=== PATIENT | female | born 1960 | race Hispanic/Latino ===

== ENCOUNTER 2025-01-06 15:02 | Inpatient (IN) | payer OTHER, MEDICAID ==
[~2025-01-06] VITALS: Ht 154.9 cm; Wt 67.4 kg
[2025-01-06 16:05] LABS: IMMATURE GRANULOCYTE ABSOLUTE 0.02 K/uL (0-1); NUCLEATED RED BLOOD CELLS 0.0 % (0.0-0.19); PLATELET COUNT (AUTO) 330 K/uL (130-400); RED BLOOD CELL COUNT(AUTO) 3.81 MIL/uL (4.00-5.50); RED CELL DISTRIBUTION WIDTH 13.5 % (11.0-15.5); WHITE BLOOD COUNT (AUTO) 8.5 K/uL (4.8-10.8)
[2025-01-06 16:20] LABS: ASPARTATE AMINOTRANSFERASE 20.0 U/L (10-37); CREATININE 1.0 mg/dL (0.5-1.0); GLOMERULAR FILTR. RATE CALC 63.0 mL/min (>90); SODIUM SERUM 139.0 mmol/L (136-145); TOTAL PROTEIN, SERUM 7.8 g/dL (6.0-8.3); UREA NITROGEN, BLOOD 22.0 mg/dL (7-18)
[2025-01-06 16:22] LABS: GLUCOSE,RANDOM 48.0 mg/dL (70-105)
[2025-01-06] MEDS: DEXTROSE 50%-WATER 50 ML DISP.SYRIN IV ONE ×2 (16:37→16:53)
[2025-01-06 16:43] LABS: ADD UA MICROSCOPIC YES; APPEARANCE,URINE TURBID (CLEAR); GLUCOSE, URINE (UA) NEGATIVE (NEGATIVE); LEUKOCYTE ESTERASE ,URINE 500 Leu/uL (NEGATIVE); NITRATE,URINE NEGATIVE (NEGATIVE); OCCULT BLOOD,URINE LARGE (NEGATIVE)
[2025-01-06 16:51] LABS: NON-SQUAMOUS EPITHELIAL CELL 8 /HPF (0-2); SQUAMOUS EPITHELIAL CELL,UR RARE /HPF (0-2)
[2025-01-06] MEDS ORDERED: ZOSYN 3.375GM +NS 50ML IV STA (17:25)
[2025-01-06] MEDS: 0.9%NACL 1000ML 1,000 ML IV ONE (17:51)
--- NOTE | 2025-01-06 18:10 | HMCIMG ---
EXAM: CT Abdomen and Pelvis Without IV Contrast. CLINICAL HISTORY: Lower abdominal pain. TECHNIQUE: Axial computed tomography images of the abdomen and pelvis without intravenous contrast. CONTRAST: No IV contrast. COMPARISON: None provided. FINDINGS: LUNG BASES: The lung bases appear clear. No pleural effusions are seen. LIVER: Unremarkable. GALLBLADDER AND BILE DUCTS: The gallbladder appears within normal limits. No radiopaque gallstones are seen. No biliary ductal dilatation is evident. PANCREAS: Unremarkable. SPLEEN: Unremarkable. ADRENAL GLANDS: Unremarkable. KIDNEYS, URETERS, AND BLADDER: Left-sided ureteral stent is seen with the proximal tip in the left renal pelvis and the distal tip in the urinary bladder. Large calculi are seen in the left renal pelvis along the ureteral stent, the largest measuring up to 3.7 cm. Severe left hydronephrosis is present with renal parenchymal thinning and multiple areas of cortical scarring. Left perinephric fat stranding is noted. A large calculus is seen within the urinary bladder along the distal end of the ureteral stent, measuring approximately 1.8 ??? 3.7 cm. Few renal cortical cysts are present, the largest measuring 2.3 ??? 2.2 cm in the mid-pole of the left kidney. STOMACH AND BOWEL: Unremarkable appearance of the stomach and bowel. No evidence of bowel obstruction. No findings suggesting enteritis or colitis. APPENDIX: No evidence of acute appendicitis on CT examination. PERITONEUM: No free fluid. No free air. LYMPH NODES: Multiple enlarged retroperitoneal lymph nodes, predominantly in the para-aortic region, the largest measuring up to 1.2 cm. REPRODUCTIVE: Post-hysterectomy status. No obvious adnexal mass. VASCULATURE: No evidence of abdominal aortic aneurysm. BONES: No aggressive-appearing osseous lesion. No acute osseous pathology. Degenerative changes in the visualized spine. MISCELLANEOUS: Hyperdense subcutaneous soft tissue lesion measuring 1.6 ??? 1.7 cm is seen in the left infraumbilical abdominal wall with few internal air foci. Associated focal overlying skin thickening is noted. IMPRESSION: 1. Large left renal pelvis calculi, up to 3.7 cm, with severe left hydronephrosis, renal parenchymal thinning, and perinephric fat stranding. Left-sided ureteral stent in place. 2. Large bladder calculus, measuring 1.8 ??? 3.7 cm. 3. Multiple enlarged retroperitoneal lymph nodes, up to 1.2 cm. 4. Hyperdense subcutaneous soft tissue lesion in left infraumbilical abdominal wall, measuring 1.6 ??? 1.7 cm, with internal air foci and focal overlying skin thickening. This may relate to recent injection, clinical correlation is advised. /[place]
--- NOTE | 2025-01-06 18:36 | ERN ---
ED Note History of Present Illness Stated Complaint: ABDOMINAL DO N Chief Complaint: Abdominal Pain Time Seen by MD: 15:30 Dictation: 64-year-old female presenting to the emergency department with diffuse abdominal pain and weakness over the past few days patient reports 10 pain. Allergies: Coded Allergies: ceftriaxone (Unverified Allergy, Unknown, 01/06/25) Past Medical History Past Medical History: Diabetes-Type II, Hypertension Surgical History: None Review of System Dictation Constitutional: Negative for fever,chills, and weight loss Eyes: Negative for injury, pain,redness, and discharge ENT: Negative for injury,pain or swelling Cardiovascular: Negative for chest pain, palpitations, and edema Respiratory: Negative for shortness of breath, cough, and wheezing, Abdomen/GI: Per HPI : Per HPI MS/Extremity: Negative for injury and deformity Skin: Negative for rash, and discoloration Neuro: Per HPI Initial Vital Sign VS Vital Signs Date Time Temp Pulse Resp B/P (MAP) Pulse Ox O2 Delivery O2 Flow Rate FiO2 01/06/25 15:05 98.8 85 16 135/66 99 Room Air 01/06/25 16:30 0 21 Physical Exam Dictation General: awake, alert, uncomfortable Head/Face: Normocephalic, atraumatic Eyes: PERRL, EOMI, vision at baseline ENT: oral cavity clear, TMs clear, no signs of infection Neck: Trachea midline, supple, no nuchal rigidity Cardiovascular: RRR, normal S1/S2, No MRGs, no JVD Respiratory: CTAB, no respiratory distress, No rales or wheezes Abdomen: Soft, diffuse tenderness non-distended, normal bowel sounds, no guarding or rebound. Skin: Warm, dry, normal turgor, no rash MS/Extremity: Pulses equal, no cyanosis, neurovascular intact, FROM Neuro: COAx4, GCS 15, strength 5/5, CN 2-12 intact, normal cerebellar exam, nor mal gait, Psych: Normal behavior, mood, and affect normal Results (Laboratory/Radiology) Laboratory/Radiology Laboratory Tests Test 01/06/25 15:52 01/06/25 16:32 01/06/25 16:35 01/06/25 17:24 White Blood Count 8.5 K/uL (4.8-10.8) Red Blood Count 3.81 MIL/uL (4.00-5.50) L Hemoglobin 10.7 g/dL (12.0-16.0) L Hematocrit 33.6 % (36-48) L Mean Corpuscular Volume 88.2 fL (79-99) Mean Corpuscular Hemoglobin 28.1 pg (27.0-33.0) Mean Corpuscular Hemoglobin Concent 31.8 g/dL (32.0-36.0) L Red Cell Distribution Width 13.5 % (11.0-15.5) Platelet Count 330 K/uL (130-400) Mean Platelet Volume 9.5 fL (7.5-10.5) Immature Granulocyte % (Auto) 0.2 % (0-1) Neutrophils (%) (Auto) 44.8 % (40.0-77.0) Lymphocytes (%) (Auto) 36.8 % (21.0-51.0) Monocytes (%) (Auto) 13.0 % (3.0-13.0) Eosinophils (%) (Auto) 4.7 % (0.0-8.0) Basophils (%) (Auto) 0.5 % (0.0-5.0) Neutrophils # (Auto) 3.8 K/uL (1.8-7.7) Lymphocytes # (Auto) 3.1 K/uL (1.0-4.8) Monocytes # (Auto) 1.1 K/uL (0.1-1.0) H Eosinophils # (Auto) 0.40 K/uL (0.00-0.70) Basophils # (Auto) 0.04 K/uL (0.00-0.20) Absolute Immature Granulocyte (auto 0.02 K/uL (0-1) Nucleated Red Blood Cells 0.0 % (0.0-0.19) Sodium Level 139 mmol/L (136-145) Potassium Level 3.7 mmol/L (3.5-5.1) Chloride Level 104 mmol/L (101-111) Carbon Dioxide Level 31 mmol/L (21-32) Blood Urea Nitrogen 22 mg/dL (7-18) H Creatinine 1.0 mg/dL (0.5-1.0) Glomerular Filtration Rate Calc 63 mL/min (>90) Random Glucose 48 mg/dL (70-105) *L Total Calcium 9.3 mg/dL (8.5-10.1) Total Bilirubin 0.4 mg/dL (0.2-1.0) Direct Bilirubin 0.1 mg/dL (0.0-0.3) Aspartate Amino Transf (AST/SGOT) 20 U/L (10-37) Alanine Aminotransferase (ALT/SGPT) 23 U/L (12-78) Alkaline Phosphatase 106 U/L (50-136) Troponin I High Sensitivity 5 ng/L (4-50) Total Protein 7.8 g/dL (6.0-8.3) Albumin 3.4 g/dL (3.5-5.0) L Lipase 36 U/L (16-77) Urine Color ORANGE (YELLOW) Urine Appearance TURBID (CLEAR) Urine pH 8.0 (5.0-8.0) Urine Specific [place] 1.016 (1.001-1.031) Urine Protein 300 mg/dL (NEGATIVE) H Urine Glucose (UA) NEGATIVE mg/dL (NEGATIVE) Urine Ketones NEGATIVE mg/dL (NEGATIVE) Urine Occult Blood LARGE (NEGATIVE) H Urine Nitrate NEGATIVE (NEGATIVE) Urine Bilirubin NEGATIVE mg/dL (NEGATIVE) Urine Urobilinogen 0.2 mg/dL (0.2-1.0) Urine Leukocyte Esterase 500 Reinier/uL (NEGATIVE) H Urine RBC 26-50 /HPF (0-1) H Urine WBC 51-100 /HPF (0-1) H Urine Squamous Epithelial Cells RARE /HPF (0-2) Urine Non-Squamous Epithelial Cells 8 /HPF (0-2) Urine Bacteria MANY /HPF (None Seen) Whole Blood Glucose 245 MG/DL (70-110) H 149 MG/DL (70-110) H Test 01/06/25 17:47 Lactic Acid Level 1.2 mmol/L (0.8-2.5) Labs Reviewed?: Yes ED Course ED Course Orders Procedure Category Date Status Time 12 Lead Ekg Tracing- EKG 01/06/25 Logged Technical 15:36 Basic Metabolic Panel LAB 01/06/25 Complete 15:36 Cbc With Differential LAB 01/06/25 Complete 15:36 Hepatic Function Panel LAB 01/06/25 Complete 15:36 Lipase LAB 01/06/25 Complete 15:36 Troponin I High LAB 01/06/25 Complete Sensitivity 15:36 Urinalysis Profile LAB 01/06/25 Complete 15:36 Morphine 4mg Syg PHA 01/06/25 Complete (Morphine 4mg Syg) 16:30 Ondansetron 4mg Inj PHA 01/06/25 Complete (Zofran 4mg Inj) 16:30 Ct Abd/Pel Wo Con CT 01/06/25 Resulted Renal/Appy 16:22 Dextrose 50%-Water PHA 01/06/25 Complete (D50w) 16:24 Ondansetron 4mg Inj PHA 01/06/25 Complete (Zofran 4mg Inj) 16:25 Morphine 4mg Syg PHA 01/06/25 Complete (Morphine 4mg Syg) 16:25 Dextrose 50%-Water PHA 01/06/25 Complete (D50w) 17:00 Culture Urine NOA 01/06/25 In Process 16:45 Blood Cult NOA 01/06/25 Logged 17:25 Lactic Acid LAB 01/06/25 Complete 17:25 Zosyn 3.375gm+Ns 50ml PHA 01/06/25 Complete (Zosyn 3.375gm+Ns 17:25 0.9%Nacl 1000ml (Ns PHA 01/06/25 Complete 1000ml) 17:30 Levofloxacin 500 PHA 01/06/25 In Process Mg/D5w 100 Ml 17:38 Current Medications Medications (Trade) Dose Ordered Sig/Rocío Route PRN Reason Start Time Stop Time Status Last Admin Dose Admin Dextrose (D50w) 50 ml ONCE ONCE IV 01/06/25 17:00 01/06/25 17:01 DC 01/06/25 17:16 Dextrose (D50w) 50 ml STK-MED ONCE IV 01/06/25 16:24 01/06/25 16:25 DC Levofloxacin/ Dextrose 100 ml @ 100 mls/hr Q24H STAT IV 01/06/25 17:38 01/06/25 18:37 01/06/25 17:51 Morphine Sulfate (morPHINE 4MG SYG) 4 mg ONCE ONCE IVP 01/06/25 16:30 01/06/25 16:31 DC 01/06/25 16:42 Morphine Sulfate (morPHINE 4MG SYG) 4 mg STK-MED ONCE .ROUTE 01/06/25 16:25 01/06/25 16:25 DC Ondansetron HCl (zoFRAN 4MG INJ) 4 mg ONCE ONCE IVP 01/06/25 16:30 01/06/25 16:31 DC 01/06/25 16:42 Ondansetron HCl (zoFRAN 4MG INJ) 4 mg STK-MED ONCE .ROUTE 01/06/25 16:25 01/06/25 16:25 DC Piperacillin Sod/ Tazobactam Sod (Zosyn 3.375gm+NS 50ml) 3.375 gm ONCE STAT IV 01/06/25 17:25 01/06/25 17:40 DC Sodium Chloride 1,000 ml @ 0 mls/hr ONCE ONCE IV 01/06/25 17:30 01/06/25 17:31 DC 01/06/25 17:51 Vital Signs Date Time Temp Pulse Resp B/P (MAP) Pulse Ox O2 Delivery O2 Flow Rate FiO2 01/06/25 17:25 99.3 89 25 105/47 99 Room Air* 0 21 01/06/25 16:30 68 18 144/68 98 Room Air* 0 21 01/06/25 15:05 98.8 85 16 135/66 99 Room Air Medical Decision Making MDM MDM: Differential diagnosis: Rationale: Tests considered and ordered secondary to shared decision making include: labs, ECG and radiology Previous outside records reviewed: Old ER visits. Risk of complication and/or morbidity or mortality of patient management: None Medications-Per medication reconciliation Need for hospitalization: Patient does meet criteria for hospitalization. Need for emergency major/minor surgery: No There are no social concerns with this patient. Prescription drug management Prescriptions will include symptomatic care Patient's prior external medical records from other ER visits were reviewed by me as indicated. Prior testing and results from previous visits were reviewed. Prior tests were taken into account with medical decision making and resource utilization, independent historian/historians were used to obtain complete medical history. I independently interpreted the test that were performed, results were reviewed by me and considered findings on radiology if ordered. Medical management and examination interpretation discussions were had by me with other qualified healthcare professionals as indicated for the patient's care. 64-year-old female presenting to the emergency department with generalized weakness left-sided hydro with UTI, pyelo, also had hypoglycemia corrected IV fluids antibiotics and dextrose given admitting for further care and evaluation Critical Care Note Comment(s) Total critical care time was 33 minutes. Excluding time for procedures. Management of critically ill patient with concern for acute decompensation. Management included interpretation of laboratory values and imaging, hemodynamics, time for consultation with consultants and admitting physician. DX & DISP Disposition: Inpatient Departure Impression: Primary Impression: Pyelonephritis of left kidney Additional Impressions: Hypoglycemia, Weakness Condition: Stable Referrals: YAAKOV ZENG MD (PCP) DAGMAR GEIGER MD Jan 06, 2025 18:36
--- NOTE | 2025-01-06 19:33 | HP ---
[facility] PHYS[facility] Date of Service: Jan 06, 2025 Time of Service: 19:32 PCP:Marimar Niño HISTORY OF PRESENT ILLNESS: This is a 64 year old female with past medical history of diabetes,hypertension ,GERD and hyperlipidemia who presents to the ED for complaints of severe abdominal pain and weakness .Patient reports pain is located to all quadrants and most especially at mid abdomen started for the past 4 weeks and pain intensity has been increasing,today pain is really intolerable associated with nausea and dizziness so she decided to come to the ED for evaluation.Patient states she was recently seen by her PCP and was found to have a UTI and was started on Macrobid antibiotic.Patient also states her last bowel movement was today and it was formed and normal in color. Seen and examined patient in the ER awake,alert and coherent,patient is crying complained of 8/10 abdominal pain level .Patient denies fever,vomiting,vomiting blood ,bloody stool,chest pain,palpitation and shortness of breat h.T99.3,HR89,RR25,BP 105/47 Sat99% RA.Labs: Hgb 10 Hct 33 Platelet 330. BUN 22 glucose 48 to 245,Trop 5,Albumin 3.4.Lactic acid 1.2.Urinalysis significant for protein 300,Occult blood large,Esterase 500 [id number] WBC 51-[address]d and pelvis without contrast result revealed . Large left renal pelvis calculi, up to 3.7 cm, with severe left hydronephrosis, renal parenchymal thinning, and perinephric fat stranding. Left-sided ureteral stent in place. Large bladder calculus, measuring 1.8 - 3.7 cm. Multiple enlarged retroperitoneal lymph nodes, up to 1.2 cm. Hyperdense subcutaneous soft tissue lesion in left infraumbilical abdominal wall, measuring 1.6- 1.7 cm, with internal air foci and focal overlying skin thickening. This may relate to recent injection . REVIEW OF SYSTEMS CONSTITUTIONAL: Denies fevers, chills, or night sweats. No unintentional weight loss reported. NEUROLOGICAL: Denies headache, amaurosis fugax, motor weakness, sensory deficit, vertigo/spinning sensation, gait abnormalities, or tremors. ENT: No hearing loss, otalgia, otorrhea, rhinitis, rhinorrhea, hoarseness, or sore throat. CARDIOVASCULAR: Denies any exertional angina, dyspnea on exertion, orthopnea, paroxysmal nocturnal dyspnea, palpitations, life-threatening arrhythmias, claudication. PULMONARY: Denies any shortness of breath, cough, phlegm/sputum, hemoptysis, pl euritic chest pain. SLEEP: Denies morning headaches, daytime somnolence or napping. Denies difficulty falling asleep, staying asleep, waking from sleep. Denies knowledge of snoring. GASTROINTESTINAL: complained of abdominal pain and constipation and nausea Denies any type of dysphagia to either liquids or solids. Denies vomiting, pyrosis, early satiety, diarrhea,changes in stool consistency or caliber. Denies coffee-ground emesis, hematemesis, hematochezia, or melanotic stools. GENITOURINARY: Denies frequency, urgency, nocturia, hematuria or incontinence (Storage/Irritative symptoms.) Low urinary stream, straining to void, urinary intermittency or hesitancy, splitting of the voiding stream, terminal dribbling. ENDOCRINOLOGIC: Denies polyuria, polydipsia, polyphagia or heat/cold intolerances. HEMATOLOGIC: Denies thrombophilia/previous clots, or coagulopathy/bleeding dis orders. ONCOLOGIC: Denies personal history of malignancy. DERMATOLOGIC: Denies rashes or pruritus. PSYCHIATRIC: Denies any suicidal or homicidal ideation. Denies hallucinations. PAST MEDICAL HISTORY: [ diabetes,hypertension ,GERD and hyperlipidemia ] PAST SURGICAL HISTORY: [ x2 ] PAST SOCIAL HISTORY: [ Patient lives alone .Patient states she does not drink alcohol,use recreational drug admits to smoking 3 cigarettes/day.] FAMILY HISTORY: [ noncontributory ] Coded Allergies: ceftriaxone (Unverified Allergy, Unknown, 01/06/25) PHYSICAL EXAM GENERAL APPEARANCE: The patient is awake, alert, and oriented, in no acute cardiopulmonary distress. NEUROLOGICAL: Cranial nerves II-XII grossly intact. Motor is 5/5 in bilateral upper and lower extremities proximal to distal. No sensory deficits. HEENT: Face is symmetric. Pupils are equal and reactive. Extraocular movements are intact. NECK: Supple. No JVD. No thyromegaly. No submental, submandibular, pre- /postauricular, occipital or supraclavicular lymphadenopathy. CHEST: Normal chest expansion. No Telemetry. LUNGS: Absence of any rales, rhonchi or any wheezing. CARDIOVASCULAR: Regular. S1 and S2 normal. No appreciable rubs, murmurs or gallops. ABDOMEN:Abdomen is round with diffuse abdominal tenderness on palpation Soft and nondistended. There is no rebound, voluntary guarding, or rigidity. : Deferred. No Navarro. EXTREMITIES: Non-edematous and not cyanotic. No clubbing. Good capillary refill. SKIN: No skin breakdown. Vital Sign (Last 24 Hours) 01/06/25 17:25 Temp 99.3 Pulse 89 Resp 25 B/P (MAP) 105/47 Pulse Ox 99 O2 Delivery Room Air* O2 Flow Rate 0 FiO2 21 LABS: Laboratory: Test 01/06/25 17:47 01/06/25 17:24 01/06/25 16:32 01/06/25 15:52 Range/Units Lactic Acid Level 1.2 0.8-2.5 mmol/L Whole Blood Glucose 149 H 70-110 MG/DL Urine Color ORANGE YELLOW Urine Appearance TURBID CLEAR Urine pH 8.0 5.0-8.0 Urine Specific [place] 1.016 1.001-1.031 Urine Protein 300 H NEGATIVE mg/dL Urine Glucose (UA) NEGATIVE NEGATIVE mg/dL Urine Ketones NEGATIVE NEGATIVE mg/dL Urine Occult Blood LARGE H NEGATIVE Urine Nitrate NEGATIVE NEGATIVE Urine Bilirubin NEGATIVE NEGATIVE mg/dL Urine Urobilinogen 0.2 0.2-1.0 mg/dL Urine Leukocyte Esterase 500 H NEGATIVE Reinier/uL Urine RBC 26-50 H 0-1 /HPF Urine WBC 51-100 H 0-1 /HPF Urine Squamous Epithelial Cells RARE 0-2 /HPF Urine Non-Squamous Epithelial Cells 8 0-2 /HPF Urine Bacteria MANY None Seen /HPF White Blood Count 8.5 4.8-10.8 K/uL Red Blood Count 3.81 L 4.00-5.50 MIL/uL Hemoglobin 10.7 L 12.0-16.0 g/dL Hematocrit 33.6 L 36-48 % Mean Corpuscular Volume 88.2 79-99 fL Mean Corpuscular Hemoglobin 28.1 27.0-33.0 pg Mean Corpuscular Hemoglobin Concent 31.8 L 32.0-36.0 g/dL Red Cell Distribution Width 13.5 11.0-15.5 % Platelet Count 330 130-400 K/uL Mean Platelet Volume 9.5 7.5-10.5 fL Immature Granulocyte % (Auto) 0.2 0-1 % Neutrophils (%) (Auto) 44.8 40.0-77.0 % Lymphocytes (%) (Auto) 36.8 21.0-51.0 % Monocytes (%) (Auto) 13.0 3.0-13.0 % Eosinophils (%) (Auto) 4.7 0.0-8.0 % Basophils (%) (Auto) 0.5 0.0-5.0 % Neutrophils # (Auto) 3.8 1.8-7.7 K/uL Lymphocytes # (Auto) 3.1 1.0-4.8 K/uL Monocytes # (Auto) 1.1 H 0.1-1.0 K/uL Eosinophils # (Auto) 0.40 0.00-0.70 K/uL Basophils # (Auto) 0.04 0.00-0.20 K/uL Absolute Immature Granulocyte (auto 0.02 0-1 K/uL Nucleated Red Blood Cells 0.0 0.0-0.19 % Sodium Level 139 136-145 mmol/L Potassium Level 3.7 3.5-5.1 mmol/L Chloride Level 104 101-111 mmol/L Carbon Dioxide Level 31 21-32 mmol/L Blood Urea Nitrogen 22 H 7-18 mg/dL Creatinine 1.0 0.5-1.0 mg/dL Glomerular Filtration Rate Calc 63 >90 mL/min Random Glucose 48 *L 70-105 mg/dL Total Calcium 9.3 8.5-10.1 mg/dL Total Bilirubin 0.4 0.2-1.0 mg/dL Direct Bilirubin 0.1 0.0-0.3 mg/dL Aspartate Amino Transf (AST/SGOT) 20 10-37 U/L Alanine Aminotransferase (ALT/SGPT) 23 12-78 U/L Alkaline Phosphatase 106 50-136 U/L Troponin I High Sensitivity 5 4-50 ng/L Total Protein 7.8 6.0-8.3 g/dL Albumin 3.4 L 3.5-5.0 g/dL Lipase 36 16-77 U/L Current Medications Medications (Trade) Dose Ordered Sig/Rocío Route PRN Reason Start Time Stop Time Status Last Admin Dose Admin Levofloxacin/ Dextrose 100 ml @ 100 mls/hr Q24H STAT IV 01/06/25 17:38 01/06/25 18:37 DC 9/11/25 17:51 100 MLS/HR Piperacillin Sod/ Tazobactam Sod (Zosyn 3.375gm+NS 50ml) 3.375 gm ONCE STAT IV 01/06/25 17:25 01/06/25 17:40 DC DIAGNOSTICS / RADIOLOGY: [ ] ASSESSMENT: Acute pyelonephritis POA Intractable abdominal pain POA Large left renal calculi with severe hydronephrosisper CT POA Large bladder calculus, measuring 1.8 - 3.[address] POA Multiple enlarged retroperitoneal lymph nodes, up to 1.[address] POA Hyperdense subcutaneous soft tissue lesion in left infraumbilical abdominal wall, measuring 1.6- 1.7 cm, with internal air foci and focal overlying skin thickening per CT POA Acute anemia POA Uncontrolled diabetes POA Nicotine dependence POA PLAN: We will admit patient in medical surgical We will keep nothing by mouth We will start LR @ 100 ml / hr x2 bags and re evaluate We will start on Protonix 40 mg IV daily for GI prophylaxis We will start on Zosyn IV q8H for empiric coverage We will replace electrolytes as needed per protocol We will start on insulin sliding scale AC & HS with hypoglycemia protocol We will add prn medication for fever,pain,cough , nausea and vomiting We will reconcile home meds once medlist available We will check fecal occult blood Counseled on cigarette smoking cessation We will seek Urology consultation We will request labs in am Further orders to follow depending on above results Case discussed with attending physician and came up with above treatment and plan of care. ADVANCED CARE PLANNING 1. Which of the following were discussed? Hospice Care - No Therapeutic options - Yes Advance Directives - No Other discussions - 2. Discussed with who? Patient 3. Voluntary nature of this service was explained to the patient? Yes 4. Amount of time spent - 22min 5. Reviewed by Physician? (if this service was performed by NPP) Yes Patient seen and examined by me. Agree with note by SQUIRREL WORKER SEE ADDITIONAL ORDERS PER CHART DISCUSSED WITH NURSING STAFF MICHELLE ARMANDO [employer] WAFERS ETCH OPERATOR Jan 06, 2025 19:33
[2025-01-06 20:00] VITALS: BP 112/54; PULSE 84; RESP 15; TEMP 98.2
[2025-01-06] MEDS ORDERED: GLUCAGON 1MG KIT 1 MG ML IM PRN (20:00)
[2025-01-06] MEDS: LACTATED RINGERS 1000ML 1,000 ML IV SCH (20:00)
[2025-01-06] MEDS ORDERED: MAGNESIUM 2GM PREMIX 50ML 50 ML IV PRN (20:00)
[2025-01-06 21:27] LABS: AMPHET/METH SCREEN,URINE NEGATIVE (NEGATIVE); BARBITURATE SCREEN, URINE NEGATIVE (NEGATIVE); CANNABINOID SCREEN,URINE NEGATIVE (NEGATIVE); COCAINE SCREEN,URINE NEGATIVE (NEGATIVE)
[2025-01-06] MEDS: ZOSYN 3.375GM+NS 50ML 50 ML IV SCH (21:27)
[2025-01-06] MEDS: DEXTROSE 50%-WATER 50 ML DISP.SYRIN IV PRN (21:38)
[2025-01-07] VITALS (7 sets, daily range): BP systolic 94–121; BP diastolic 44–63; PULSE 66–84; RESP 15–18; TEMP 97.6–98.5; O2SAT 95–97
--- NOTE | 2025-01-07 03:05 | EKG ---
[facility] Test Date: 2025-01-06 Test Time: 15:55:08 Pat Name: YOLANDA WALKER Department: [facility] Room: 413 Gender: F Casework Supervisor: [id number] : [id number] Requested By: DAGMAR GEIGER Order Number: [id number] Reading MD: Brennon Lopez Measurements Intervals [place] Rate: 78 P: 41 PA: 145 QRS: 32 QRSD: 77 T: 31 QT: 371 QTc: 422 Interpretive Statements Sinus rhythm No previous ECG available for comparison Electronically Signed On 01-07-2025 13:41:06 CDT by Brennon Lopez Please click the below link to view image of tracing.
--- NOTE | 2025-01-07 03:27 | NUR ---
ED RN PAGED HOSPITALIST LINK WIRE FABRIC MACHINE TENDER FOR PAIN MEDICATIONS FOR A HEADACHE. PT REQUESTING TYLENOL. PER LINK WIRE FABRIC MACHINE TENDER, PT IS NPO, CAN GIVEN KETOROLAC 15MG IVP ONCE.
[2025-01-07] MEDS: DEXTROSE 5%-LACTATED RINGERS 1,000 ML IV SCH (04:47)
[2025-01-07] MEDS ORDERED: NITR100C PO (06:34)
[2025-01-07] MEDS ORDERED: MELO-108 PO (06:34)
[2025-01-07] MEDS ORDERED: OMEP20TA20 PO (06:34)
[2025-01-07] MEDS ORDERED: ATOR10 PO (06:34)
[2025-01-07] MEDS ORDERED: CHOL500051 PO (06:34)
--- NOTE | 2025-01-07 07:12 | NUR ---
RETURNED ALL MEDS TO PT AFTER MED RECON
--- NOTE | 2025-01-07 07:28 | NUR ---
0710 ROUNDED ON PT WITH KLAUS RN AT BEDSIDE, BOYFRIEND AT BEDSIDE, BLANKETS LINEN ON THE FLOOR HE SLEPT. PT STABLE PAIN MEDICATED, STATED MILD DISCOMFORT. RE-INFORCEDPT IS STILL NPO, PER NIGHT NURSE PT REPEATED ASKING FOR WATER WITH ICE, MADE PT AWARE SHE IS STILL PENDING UROLOGY CONSULT WITH DR. KEYS WILL BE NPO TILL CONSULTATION WITH DOCTOR PT VERBALIZED UNDERSTANDING.
[2025-01-07 07:41] LABS: IMMATURE GRANULOCYTE ABSOLUTE 0.01 K/uL (0-1); NUCLEATED RED BLOOD CELLS 0.0 % (0.0-0.19); PLATELET COUNT (AUTO) 266 K/uL (130-400); RED BLOOD CELL COUNT(AUTO) 3.23 MIL/uL (4.00-5.50); RED CELL DISTRIBUTION WIDTH 13.7 % (11.0-15.5); WHITE BLOOD COUNT (AUTO) 5.4 K/uL (4.8-10.8)
[2025-01-07 08:02] LABS: ASPARTATE AMINOTRANSFERASE 16.0 U/L (10-37); CREATININE 1.1 mg/dL (0.5-1.0); GLOMERULAR FILTR. RATE CALC 56.0 mL/min (>90); GLUCOSE,RANDOM 98.0 mg/dL (70-105); SODIUM SERUM 137.0 mmol/L (136-145); TOTAL PROTEIN, SERUM 6.4 g/dL (6.0-8.3); UREA NITROGEN, BLOOD 18.0 mg/dL (7-18)
--- NOTE | 2025-01-07 08:22 | NUR ---
PER NIGHT NURSE ZOSYN WAS NOT GIVEN. CALLED PHARMACY TO RE TIME ANTIBIOTIC.
--- NOTE | 2025-01-07 08:34 | NUR ---
PER PT SHE STATES SHE HAD SURGERY SCHEDULED ON , PT STATES SHE CANCELLED DUE SURGEON NOT SENDING DOCUMENTATION TO PCP, PT STATES SHE WAS NOT READY FOR PERSONAL REASONS AND WOULD DECIDE TO DO SX LATER.
[2025-01-07] MEDS: ZOSYN 3.375GM+NS 50ML 50 ML IV SCH (08:38)
--- NOTE | 2025-01-07 09:11 | NUR ---
0900 REPORT GIVEN TO AI NURSE, PT STABLE NO DISTRESS VITALS WNL NO C/O PAIN NOW. PT TAKE TO ROOM VIA W/C WITH PERSONAL BELONGINGS.
--- NOTE | 2025-01-07 09:12 | NUR ---
SPOKE TO ROSY GONZALEZ FOR DR. KEYS OFFICE, INFORMATION GIVEN.
--- NOTE | 2025-01-07 09:30 | NUR ---
pt arrived on unit via wc accompanied by DIRECTOR NEW PRODUCT x2, A&Ox4 able to make needs known, denies pain. resp =& unlabored bilat, abdomen soft & flat. IV patent. PT states she is depressed due to multiple losses in her family. educated PT on Hospital safety and environment. bed @ lowest position call light in reach.
--- NOTE | 2025-01-07 13:23 | NUR ---
DCP: HOME Sw met with pt who was extremely short, and rude. Pt states she lives alone in home tat the son and daughter own. Sw asked of she had a provider, "I don't need a provider, I can do everything for my self". Sw asked to have any equipment (DME) at home, "No, I don't need any of that stuff". Pt states she did not need any HH or HD. Pt sated she drove herself to [facility] and will drive self home. Sw asked if I could get a ER contact, "no. there is no one". PCP is Meera Minaya at [facility]. Sw asked if there was anything she would need at discharge, SNF, or did she feel she could return home. "Where else would I go? " DCP is home. Addendum: 01/07/25 at 1333 by KAYLA SOW Amended: Links added.
--- NOTE | 2025-01-07 15:30 | NUR ---
PT refused telemetry monitoring. PT states "I don't have no heart problems" Refusal sheet signed
--- NOTE | 2025-01-07 23:30 | CONS ---
REQUESTING PHYSICIAN: Jena Bobo MD REASON FOR CONSULTATION: Left renal pelvis stone. HISTORY OF PRESENT ILLNESS: Dear Dr. Bobo, I had the pleasure of this patient in consultation for evaluation of left-sided kidney stone. This is a 64-year-old, very noncompliant female, who presents to the hospital because of low abdominal pain, particularly in the left lower quadrant of about a day's duration. The patient is being treated for possible soft tissue infection, anterior abdominal wall with antibiotics. The patient feels somewhat improved. She does have a history about 20 years ago of having had a hysterectomy and TIERCE FILLER surgery, at which time, a left-sided double-J stent was placed. Apparently, this was supposed to be removed shortly thereafter. There was an attached string or some other maneuver otherwise, and the patient has not been able to follow up until most recently when she was seen and noted to have hydronephrosis on the left side, a retained double-J stent, a staghorn calculus on the left, and a large bladder stone of about 4 cm around the distal curve with a double-J stent on the left hand side. Apparently, she was scheduled to have extirpative surgery at [facility] on 11/30, but elected not to pursue that and was noncompliant there. She is encountered lying in bed comfortably. Her pain is improved in the lower abdomen. She has no fever or chills. No nausea or vomiting. ALLERGIES: APPARENTLY TO CEFTRIAXONE. MEDICATIONS: Include magnesium, insulin, glucagon, Zofran, and Zosyn. PAST MEDICAL HISTORY: Diabetes and hypertension. PAST SURGICAL HISTORY: Hysterectomy, oophorectomy, and double-J stent placement on left side 20 years ago. SOCIAL HISTORY: The patient is a provider, 2 children. Does not smoke or drink. FAMILY HISTORY: Negative for kidney stones. REVIEW OF SYSTEMS: She has no shortness of breath, no chest pain. Her appetite is good. No nausea. No vomiting, constipation, or diarrhea. No headaches or dizziness. No nosebleeds. No joint pain, joint swelling, limitation of movement, night sweats, fever, chills, or skin rash. PHYSICAL EXAMINATION: GENERAL: Well-developed female, in no distress. VITAL SIGNS: Temperature is 98, blood pressure is 135/66, pulse is 85. NECK: Has no adenopathy or supraclavicular masses palpable. LUNGS: Lung mariano are clear to auscultation and percussion. HEART: Heart sounds are best heard in the fifth intercostal space, midclavicular line left side. ABDOMEN: Full, soft, nontender. No masses. BACK: Has no CVA tenderness. EXTERNAL GENITALIA: The patient does not have an external string from her urethra. She does not have a string anywhere in her vaginal vault at this time. LABORATORY DATA: The patient's laboratory data is reviewed in detail. Her white count on admission was 8.5. Her hematocrit is 33. Platelet count is 330. The patient's sodium 139, potassium is 3.7, BUN and creatinine 22/1.0. Urinalysis shows turbid yellow urine. Specific gravity is 1.016. She has no nitrates in her urine, leukocyte esterase positive. She has some white cells and red cells and many bacteria. IMAGING STUDIES: Reviewed today confirm the presence of a retained double-J stent on the left side with extensive calcification about 4 cm in the kidney on the left, very severe hydronephrosis with very thin cortical rim and a double-J stent with a large stone around the distal curl in the bladder as well. ASSESSMENT: Is that of: * Urinary tract infection. * Noncompliance. * Retained left-sided double-J stent over 20 years' duration. * Staghorn calculus left. * Large bladder stone. RECOMMENDATIONS: * The patient will be treated with IV antibiotics. * Following discharge, to follow up with her treating urologist regarding her retained double-J stent for which she was already scheduled for surgery at [facility]. * The patient's concerns and questions were answered. Thank you for the opportunity for providing consultation on your patient. Importance of compliance is stressed to the patient and her relatives at the bedside. Sincerely, TID: [id number] RECEIPT: [id number]
[2025-01-08 03:57] VITALS: BP 121/54; PULSE 79; RESP 16; TEMP 97.4
[2025-01-08 07:49] VITALS: O2SAT 98
[2025-01-08 08:00] VITALS: BP 100/38; PULSE 78; RESP 16; TEMP 97.8
[2025-01-08 12:00] VITALS: BP 116/57; PULSE 74; RESP 17; TEMP 98.7
--- NOTE | 2025-01-08 13:13 | CONS ---
INFECTIOUS DISEASE CONSULTATION DATE OF SERVICE: 01/08/2025 REQUESTING PHYSICIAN: Jena Bobo MD REASON FOR CONSULTATION: UTI and bacteremia. HISTORY OF PRESENT ILLNESS: A 64-year-old female with history of hypertension, diabetes mellitus, nephrolithiasis and UTI, presented to the hospital with abdominal pain and weakness. The pain has been growing up about 4 weeks. The patient also complained of low grade fever ____ 99.0. ____, which showed left-sided adenopathy with multiple stones. The patient was also found to have a retained stent. As per the urologist, the patient had a stent placed about 20 years ago during a surgical procedure for hysterectomy. The patient never went for followup for removal. The patient also recently was scheduled to have surgery with another urologist, which the patient never kept. PAST MEDICAL HISTORY: * UTI. * Nephrolithiasis. * Hydronephrosis. * Diabetes mellitus. * Hypertension. PAST SURGICAL HISTORY: * Hysterectomy. * Oophorectomy. * Left ureteral stenting. ALLERGIES: Reviewed. CURRENT MEDICATIONS: * Zosyn. * Zofran. * Insulin. SOCIAL HISTORY: No alcohol, tobacco, or illicit drug use. FAMILY HISTORY: Positive for diabetes mellitus. REVIEW OF SYSTEMS: Greater than 10 systems were reviewed, negative except as documented above. PHYSICAL EXAMINATION: GENERAL: Elderly female awake. VITAL SIGNS: Temperature 97.3, pulse 79, respirations 16, blood pressure 121/54. EYES: No icterus. Pupils equal and reactive. HENT: No oral thrush seen. Moist oral mucosa. NECK: Supple. No JVD or thyromegaly. LUNGS: Good air entry. No rales, no rhonchi. CARDIOVASCULAR: S1 and S2. Regular. No murmur heard. ABDOMEN: Full, soft, nontender. Bowel sounds present. CENTRAL NERVOUS SYSTEM: Awake, alert, and oriented x 3. No focal deficits. SKIN: No rashes. No itchiness. LYMPHATIC: No peripheral lymphadenopathy. HEMATOLOGIC: No bleeding or petechial lesion seen. MUSCULOSKELETAL: No joint swelling, erythema, or tenderness. LABORATORY DATA: Sodium 137, potassium 4.1, BUN 18, creatinine 1.1, WBC 5.4, hemoglobin 8.0, platelets 266. Urinalysis, wbc's 100, leukocyte esterase 500. Cultures grew E. coli. Blood culture growing gram positive cocci in cluster. RADIOLOGY: CT of the abdomen result reviewed. ASSESSMENT: A 64-year-old female who presented with abdominal pain. Current problem included: * UTI. * Hydronephrosis. * Gram-positive bacteremia, which is probably contaminant. * Medical noncompliant. * Diabetes mellitus. * Hypertension. PLAN: * Continue ceftriaxone. * Follow-up cultures. * Continue pain management. * Continue antidiabetic. * Continue antihypertensive. * Continue nutritional support. * Monitor electrolytes. * The patient will be followed closely. Thank you for allowing me to participate in the care of this patient. TID: [id number] RECEIPT: [id number]
[2025-01-08 16:00] VITALS: BP 127/58; PULSE 68; RESP 16; TEMP 97.7
--- NOTE | 2025-01-08 16:15 | PN ---
[facility] PROGRESS NOTE Date of Service: Jan 08, 2025 Time of Service: 16:15 SUBJECTIVE: [ 01/08/2025: PATIENT WAS SEEN AND EXAMINED IN HER ROOM WITH THE NURSE PRESENT AT THE BEDSIDE. PATIENT WAS SITTING IN A BEDSIDE CHAIR. SMILING. HE STATES THAT HER BELLY PAIN IMPROVED DRAMATICALLY. DENIED ANY NAUSEA OR VOMITING. SHE IS STILL RECEIVING IV ANTIBIOTICS WE WILL AVOID ANY ON CHRONIC SINCE COMING TO THE FLOOR TODAY. ] REVIEW OF SYSTEMS CONSTITUTIONAL: Denies fevers, chills, or night sweats. No unintentional weight loss reported. NEUROLOGICAL: Denies headache, amaurosis fugax, motor weakness, sensory deficit, vertigo/spinning sensation, gait abnormalities, or tremors. ENT: No hearing loss, otalgia, otorrhea, rhinitis, rhinorrhea, hoarseness, or sore throat. CARDIOVASCULAR: Denies any exertional angina, dyspnea on exertion, orthopnea, paroxysmal nocturnal dyspnea, palpitations, life-threatening arrhythmias, claudication. PULMONARY: Denies any shortness of breath, cough, phlegm/sputum, hemoptysis, pleuritic chest pain. SLEEP: Denies morning headaches, daytime somnolence or napping. Denies diff iculty falling asleep, staying asleep, waking from sleep. Denies knowledge of snoring. GASTROINTESTINAL: complained of abdominal pain and constipation and nausea Denies any type of dysphagia to either liquids or solids. Denies vomiting, pyrosis, early satiety, diarrhea,changes in stool consistency or caliber. Denies coffee-ground emesis, hematemesis, hematochezia, or melanotic stools. GENITOURINARY: Denies frequency, urgency, nocturia, hematuria or incontinence (Storage/Irritative symptoms.) Low urinary stream, straining to void, urinary intermittency or hesitancy, splitting of the voiding stream, terminal dribbling. ENDOCRINOLOGIC: Denies polyuria, polydipsia, polyphagia or heat/cold intolerances. HEMATOLOGIC: Denies thrombophilia/previous clots, or coagulopathy/bleeding disorders. ONCOLOGIC: Denies personal history of malignancy. DERMATOLOGIC: Denies rashes or pruritus. PSYCHIATRIC: Denies any suicidal or homicidal ideation. Denies hallucinations. PHYSICAL EXAM GENERAL APPEARANCE: The patient is awake, alert, and oriented, in no acute cardiopulmonary distress. NEUROLOGICAL: Cranial nerves II-XII grossly intact. Motor is 5/5 in bilateral upper and lower extremities proximal to distal. No sensory deficits. HEENT: Face is symmetric. Pupils are equal and reactive. Extraocular movements are intact. NECK: Supple. No JVD. No thyromegaly. No submental, submandibular, pre- /postauricular, occipital or supraclavicular lymphadenopathy. CHEST: Normal chest expansion. No Telemetry. LUNGS: Absence of any rales, rhonchi or any wheezing. CARDIOVASCULAR: Regular. S1 and S2 normal. No appreciable rubs, murmurs or gallops. ABDOMEN: Soft and nondistended. There is no rebound, voluntary guarding, or rigidity. : Deferred. No Navarro. EXTREMITIES: Non-edematous and not cyanotic. No clubbing. Good capillary refill. SKIN: No skin breakdown. Vital Signs (last 8hr) Date Time Temp Pulse Resp B/P (MAP) Pulse Ox O2 Delivery O2 Flow Rate FiO2 01/08/25 12:00 98.8 74 17 116/57 98 Room Air LABS: Laboratory: Test 01/08/25 12:10 01/07/25 07:27 01/06/25 17:47 01/06/25 16:32 Range/Units Whole Blood Glucose 145 #H 70-110 MG/DL White Blood Count 5.4 # 4.8-10.8 K/uL Red Blood Count 3.23 L 4.00-5.50 MIL/uL Hemoglobin 9.0 L 12.0-16.0 g/dL Hematocrit 28.2 L 36-48 % Mean Corpuscular Volume 87.3 79-99 fL Mean Corpuscular Hemoglobin 27.9 27.0-33.0 pg Mean Corpuscular Hemoglobin Concent 31.9 L 32.0-36.0 g/dL Red Cell Distribution Width 13.7 11.0-15.5 % Platelet Count 266 130-400 K/uL Mean Platelet Volume 9.7 7.5-10.5 fL Immature Granulocyte % (Auto) 0.2 0-1 % Neutrophils (%) (Auto) 49.1 40.0-77.0 % Lymphocytes (%) (Auto) 30.4 21.0-51.0 % Monocytes (%) (Auto) 15.4 H 3.0-13.0 % Eosinophils (%) (Auto) 4.3 0.0-8.0 % Basophils (%) (Auto) 0.6 0.0-5.0 % Neutrophils # (Auto) 2.7 1.8-7.7 K/uL Lymphocytes # (Auto) 1.6 1.0-4.8 K/uL Monocytes # (Auto) 0.8 0.1-1.0 K/uL Eosinophils # (Auto) 0.23 0.00-0.70 K/uL Basophils # (Auto) 0.03 0.00-0.20 K/uL Absolute Immature Granulocyte (auto 0.01 0-1 K/uL Nucleated Red Blood Cells 0.0 0.0-0.19 % White Cell Morphology Comment See comments Sodium Level 137 136-145 mmol/L Potassium Level 4.1 3.5-5.1 mmol/L Chloride Level 106 101-111 mmol/L Carbon Dioxide Level 27 21-32 mmol/L Blood Urea Nitrogen 18 7-18 mg/dL Creatinine 1.1 H 0.5-1.0 mg/dL Glomerular Filtration Rate Calc 56 >90 mL/min Random Glucose 98 # 70-105 mg/dL Total Calcium 8.6 8.5-10.1 mg/dL Magnesium Level 2.10 1.80-2.40 mg/dL Total Bilirubin 0.3 # 0.2-1.0 mg/dL Aspartate Amino Transf (AST/SGOT) 16 10-37 U/L Alanine Aminotransferase (ALT/SGPT) 19 12-78 U/L Alkaline Phosphatase 84 50-136 U/L Total Protein 6.4 6.0-8.3 g/dL Albumin 2.6 #L 3.5-5.0 g/dL Thyroid Stimulating Hormone (TSH) 3.25 0.36-3.74 uIU/mL Lactic Acid Level 1.2 0.8-2.5 mmol/L Urine Color ORANGE YELLOW Urine Appearance TURBID CLEAR Urine pH 8.0 5.0-8.0 Urine Specific [place] 1.016 1.001-1.031 Urine Protein 300 H NEGATIVE mg/dL Urine Glucose (UA) NEGATIVE NEGATIVE mg/dL Urine Ketones NEGATIVE NEGATIVE mg/dL Urine Occult Blood LARGE H NEGATIVE Urine Nitrate NEGATIVE NEGATIVE Urine Bilirubin NEGATIVE NEGATIVE mg/dL Urine Urobilinogen 0.2 0.2-1.0 mg/dL Urine Leukocyte Esterase 500 H NEGATIVE Reinier/uL Urine RBC 26-50 H 0-1 /HPF Urine WBC 51-100 H 0-1 /HPF Urine Squamous Epithelial Cells RARE 0-2 /HPF Urine Non-Squamous Epithelial Cells 8 0-2 /HPF Urine Bacteria MANY None Seen /HPF Urine Opiates Screen NEGATIVE NEGATIVE Urine Barbiturates Screen NEGATIVE NEGATIVE Urine Phencyclidine Screen NEGATIVE NEGATIVE Urine Amphetamines Screen NEGATIVE NEGATIVE Urine Benzodiazepines Screen NEGATIVE NEGATIVE Urine Cocaine Screen NEGATIVE NEGATIVE Urine Marijuana (THC) Screen NEGATIVE NEGATIVE Current Medications Medications (Trade) Dose Ordered Sig/Rocío Route PRN Reason Start Time Stop Time Status Last Admin Dose Admin Dextrose (D50w) 50 ml AD PRN IV HYPOGLYCEMIA PROTOCOL 01/06/25 20:00 02/05/25 19:59 01/06/25 21:38 50 ML Dextrose/Lactated Ringer's 1,000 ml @ 100 mls/hr Q10H IV 01/07/25 04:00 02/06/25 03:59 01/08/25 00:32 100 MLS/HR Docusate Sodium (COLace 100MG CAP) 100 mg BID PO 01/08/25 21:00 02/07/25 20:59 Glucagon (Glucagon 1mg Kit) 1 mg AD PRN IM HYPOGLYCEMIA PROTOCOL 01/06/25 20:00 02/05/25 19:59 Insulin Human Regular (humuLIN R 100 UNIT/ML 3ML) INSULIN SLIDING SCAL... ACHS SQ 01/06/25 21:00 02/05/25 20:59 Lactated Ringer's 1,000 ml @ 100 mls/hr Q10H IV 01/06/25 20:00 01/07/25 04:01 DC 01/06/25 20:00 100 MLS/HR Levofloxacin/ Dextrose 100 ml @ 100 mls/hr Q24H STAT IV 01/06/25 17:38 01/06/25 18:37 DC 01/06/25 17:51 100 MLS/HR Magnesium Sulfate 50 ml @ 0 mls/hr PROTOCOL PRN IV OTHER [SEE ORDER COMMENTS] 01/06/25 20:00 02/05/25 19:59 Morphine Sulfate (morPHINE 2MG SYG) 2 mg Q4H PRN IVP SEVERE PAIN (7-10) 01/06/25 21:00 01/13/25 20:59 01/06/25 21:24 2 MG Ondansetron HCl (zoFRAN 4MG INJ) 4 mg Q6H PRN IV NAUSEA/VOMITING 01/06/25 20:00 02/05/25 19:59 01/07/25 04:15 4 MG Pantoprazole Sodium (PROTonix 40MG INJ) 40 mg DAILY IVP 01/07/25 09:00 02/06/25 08:59 01/08/25 08:24 40 MG Piperacillin Sod/ Tazobactam Sod 50 ml @ 12.5 mls/hr Q8H IV 01/07/25 08:30 01/17/25 08:29 01/08/25 08:24 12.5 MLS/HR Piperacillin Sod/ Tazobactam Sod 50 ml @ 12.5 mls/hr ZOSY8 IV 01/06/25 21:00 01/07/25 08:24 DC 01/06/25 21:27 12.5 MLS/HR Piperacillin Sod/ Tazobactam Sod (Zosyn 3.375gm+NS 50ml) 3.375 gm ONCE STAT IV 01/06/25 17:25 01/06/25 17:40 DC Potassium Chloride 100 ml @ 50 mls/hr AD PRN IV POTASSIUM PROTOCOL 01/06/25 20:00 02/05/25 19:59 DIAGNOSTICS / RADIOLOGY: [ ] ASSESSMENT: Acute pyelonephritis POA Intractable abdominal pain POA Large left renal calculi with severe hydronephrosisper CT POA Large bladder calculus, measuring 1.8 - 3.[address] POA Multiple enlarged retroperitoneal lymph nodes, up to 1.[address] POA Hyperdense subcutaneous soft tissue lesion in left infraumbilical abdominal wall, measuring 1.6- 1.7 cm, with internal air foci and focal overlying skin thickening per CT POA Acute anemia POA Uncontrolled diabetes POA Nicotine dependence POA PLAN: We will seek Urology consultation WITH EMPTYING RECOMMENDED IV ANTIBIOTICS BUT NO PROCEDURES PATIENT WAS ALREADY SCHEDULED FOR WHO? TISSUE THAT DR. CARMEL GOLDEN WHICH SHE CANCELED AND WANTED TO TALK TO HER PHYSICIAN. We will request labs in am Further orders to follow depending on above results MARTY BAIN MD Jan 08, 2025 16:15
[2025-01-08 20:00] VITALS: BP 126/57; PULSE 83; RESP 18; TEMP 97.9; O2SAT 99
[2025-01-09] VITALS (7 sets, daily range): BP systolic 107–146; BP diastolic 37–70; PULSE 63–76; RESP 16–20; TEMP 97.5–98.7; O2SAT 96–99
[2025-01-09 04:36] LABS: IMMATURE GRANULOCYTE ABSOLUTE 0.01 K/uL (0-1); NUCLEATED RED BLOOD CELLS 0.0 % (0.0-0.19); PLATELET COUNT (AUTO) 283 K/uL (130-400); RED BLOOD CELL COUNT(AUTO) 3.30 MIL/uL (4.00-5.50); RED CELL DISTRIBUTION WIDTH 13.2 % (11.0-15.5); WHITE BLOOD COUNT (AUTO) 4.9 K/uL (4.8-10.8)
[2025-01-09 04:43] LABS: CREATININE 1.1 mg/dL (0.5-1.0); GLOMERULAR FILTR. RATE CALC 56.0 mL/min (>90); GLUCOSE,RANDOM 154.0 mg/dL (70-105); SODIUM SERUM 137.0 mmol/L (136-145); UREA NITROGEN, BLOOD 17.0 mg/dL (7-18)
--- NOTE | 2025-01-09 10:01 | PN ---
[facility] PROGRESS NOTE Date of Service: Jan 09, 2025 Time of Service: 09:58 SUBJECTIVE: [ 01/08/2025: PATIENT WAS SEEN AND EXAMINED IN HER ROOM WITH THE NURSE PRESENT AT THE BEDSIDE. PATIENT WAS SITTING IN A BEDSIDE CHAIR. SMILING. HE STATES THAT HER BELLY PAIN IMPROVED DRAMATICALLY. DENIED ANY NAUSEA OR VOMITING. SHE IS STILL RECEIVING IV ANTIBIOTICS WE WILL AVOID ANY ON CHRONIC SINCE COMING TO THE FLOOR TODAY. 01/09/2025: Patient was seen and examined in room 413. She is sitting up in bed. She describes her abdominal pain which yesterday was 5/10 as being improved or less than 5/10. No nausea or vomiting no trouble with urinating but still having some hard stools. She describes it as passing some crawdads". She is hoping the stool softeners she took last night and then again this morning we will help with her bowels. No fever or chills.] REVIEW OF SYSTEMS CONSTITUTIONAL: Denies fevers, chills, or night sweats. No unintentional weight loss reported. NEUROLOGICAL: Denies headache, amaurosis fugax, motor weakness, sensory deficit, vertigo/spinning sensation, gait abnormalities, or tremors. ENT: No hearing loss, otalgia, otorrhea, rhinitis, rhinorrhea, hoarseness, or sore throat. CARDIOVASCULAR: Denies any exertional angina, dyspnea on exertion, orthopnea, paroxysmal nocturnal dyspnea, palpitations, life-threatening arrhythmias, claudication. PULMONARY: Denies any shortness of breath, cough, phlegm/sputum, hemoptysis, pleuritic chest pain. SLEEP: Denies morning headaches, daytime somnolence or napping. Denies difficulty falling asleep, staying asleep, waking from sleep. Denies knowledge of snoring. GASTROINTESTINAL: complained of abdominal pain and constipation and nausea Denies any type of dysphagia to either liquids or solids. Denies vomiting, pyrosis, early satiety, diarrhea,changes in stool consistency or caliber. Denies coffee-ground emesis, hematemesis, hematochezia, or melanotic stools. GENITOURINARY: Denies frequency, urgency, nocturia, hematuria or incontinence (Storage/Irritative symptoms.) Low urinary stream, straining to void, urinary intermittency or hesitancy, splitting of the voiding stream, terminal dribbling. ENDOCRINOLOGIC: Denies polyuria, polydipsia, polyphagia or heat/cold intolerances. HEMATOLOGIC: Denies thrombophilia/previous clots, or coagulopathy/bleeding disorders. ONCOLOGIC: Denies personal history of malignancy. DERMATOLOGIC: Denies rashes or pruritus. PSYCHIATRIC: Denies any suicidal or homicidal ideation. Denies hallucinations. PHYSICAL EXAM GENERAL APPEARANCE: The patient is awake, alert, and oriented, in no acute cardiopulmonary distress. NEUROLOGICAL: Cranial nerves II-XII grossly intact. Motor is 5/5 in bilateral upper and lower extremities proximal to distal. No sensory deficits. HEENT: Face is symmetric. Pupils are equal and reactive. Extraocular movements are intact. NECK: Supple. No JVD. No thyromegaly. No submental, submandibular, pre- /postauricular, occipital or supraclavicular lymphadenopathy. CHEST: Normal chest expansion. No Telemetry. LUNGS: Absence of any rales, rhonchi or any wheezing. CARDIOVASCULAR: Regular. S1 and S2 normal. No appreciable rubs, murmurs or gallops. ABDOMEN: Soft and nondistended. There is no rebound, voluntary guarding, or rigidity. : Deferred. No Navarro. EXTREMITIES: Non-edematous and not cyanotic. No clubbing. Good capillary refill. SKIN: No skin breakdown. Vital Signs (last 8hr) Date Time Temp Pulse Resp B/P (MAP) Pulse Ox O2 Delivery O2 Flow Rate FiO2 01/09/25 03:52 97.5 68 20 131/70 98 Room Air LABS: Laboratory: Test 01/09/25 05:27 01/09/25 04:17 Range/Units Whole Blood Glucose 137 H 70-110 MG/DL White Blood Count 4.9 4.8-10.8 K/uL Red Blood Count 3.30 L 4.00-5.50 MIL/uL Hemoglobin 9.1 L 12.0-16.0 g/dL Hematocrit 29.1 L 36-48 % Mean Corpuscular Volume 88.2 79-99 fL Mean Corpuscular Hemoglobin 27.6 27.0-33.0 pg Mean Corpuscular Hemoglobin Concent 31.3 L 32.0-36.0 g/dL Red Cell Distribution Width 13.2 11.0-15.5 % Platelet Count 283 130-400 K/uL Mean Platelet Volume 10.0 7.5-10.5 fL Immature Granulocyte % (Auto) 0.2 0-1 % Neutrophils (%) (Auto) 34.2 L 40.0-77.0 % Lymphocytes (%) (Auto) 43.4 21.0-51.0 % Monocytes (%) (Auto) 14.7 H 3.0-13.0 % Eosinophils (%) (Auto) 6.7 0.0-8.0 % Basophils (%) (Auto) 0.8 0.0-5.0 % Neutrophils # (Auto) 1.7 L 1.8-7.7 K/uL Lymphocytes # (Auto) 2.1 1.0-4.8 K/uL Monocytes # (Auto) 0.7 0.1-1.0 K/uL Eosinophils # (Auto) 0.33 0.00-0.70 K/uL Basophils # (Auto) 0.04 0.00-0.20 K/uL Absolute Immature Granulocyte (auto 0.01 0-1 K/uL Nucleated Red Blood Cells 0.0 0.0-0.19 % Sodium Level 137 136-145 mmol/L Potassium Level 4.0 3.5-5.1 mmol/L Chloride Level 104 101-111 mmol/L Carbon Dioxide Level 27 21-32 mmol/L Blood Urea Nitrogen 17 7-18 mg/dL Creatinine 1.1 H 0.5-1.0 mg/dL Glomerular Filtration Rate Calc 56 >90 mL/min Random Glucose 154 H 70-105 mg/dL Total Calcium 9.2 8.5-10.1 mg/dL Current Medications Medications (Trade) Dose Ordered Sig/Rocío Route PRN Reason Start Time Stop Time Status Last Admin Dose Admin Dextrose (D50w) 50 ml AD PRN IV HYPOGLYCEMIA PROTOCOL 01/06/25 20:00 02/05/25 19:59 01/06/25 21:38 50 ML Dextrose/Lactated Ringer's 1,000 ml @ 100 mls/hr Q10H IV 01/07/25 04:00 02/06/25 03:59 01/09/25 06:07 100 MLS/HR Docusate Sodium (COLace 100MG CAP) 100 mg BID PO 01/08/25 21:00 02/07/25 20:59 01/09/25 08:30 100 MG Glucagon (Glucagon 1mg Kit) 1 mg AD PRN IM HYPOGLYCEMIA PROTOCOL 01/06/25 20:00 02/05/25 19:59 Insulin Human Regular (humuLIN R 100 UNIT/ML 3ML) INSULIN SLIDING SCAL... ACHS SQ 01/06/25 21:00 02/05/25 20:59 01/08/25 17:40 4 UNIT Lactated Ringer's 1,000 ml @ 100 mls/hr Q10H IV 01/06/25 20:00 01/07/25 04:01 DC 01/06/25 20:00 100 MLS/HR Levofloxacin/ Dextrose 100 ml @ 100 mls/hr Q24H STAT IV 01/06/25 17:38 01/06/25 18:37 DC 01/06/25 17:51 100 MLS/HR Magnesium Sulfate 50 ml @ 0 mls/hr PROTOCOL PRN IV OTHER [SEE ORDER COMMENTS] 01/06/25 20:00 02/05/25 19:59 Morphine Sulfate (morPHINE 2MG SYG) 2 mg Q4H PRN IVP SEVERE PAIN (7-10) 01/06/25 21:00 01/13/25 20:59 01/06/25 21:24 2 MG Ondansetron HCl (zoFRAN 4MG INJ) 4 mg Q6H PRN IV NAUSEA/VOMITING 01/06/25 20:00 02/05/25 19:59 01/07/25 04:15 4 MG Pantoprazole Sodium (PROTonix 40MG INJ) 40 mg DAILY IVP 01/07/25 09:00 02/06/25 08:59 01/09/25 08:31 40 MG Piperacillin Sod/ Tazobactam Sod 50 ml @ 12.5 mls/hr Q8H IV 01/07/25 08:30 01/17/25 08:29 01/09/25 08:30 12.5 MLS/HR Piperacillin Sod/ Tazobactam Sod 50 ml @ 12.5 mls/hr ZOSY8 IV 01/06/25 21:00 01/07/25 08:24 DC 01/06/25 21:27 12.5 MLS/HR Piperacillin Sod/ Tazobactam Sod (Zosyn 3.375gm+NS 50ml) 3.375 gm ONCE STAT IV 01/06/25 17:25 01/06/25 17:40 DC Potassium Chloride 100 ml @ 50 mls/hr AD PRN IV POTASSIUM PROTOCOL 01/06/25 20:00 02/05/25 19:59 DIAGNOSTICS / RADIOLOGY: [ ] ASSESSMENT: Acute pyelonephritis POA Intractable abdominal pain POA Large left renal calculi with severe hydronephrosisper CT POA Large bladder calculus, measuring 1.8 - 3.[address] POA Multiple enlarged retroperitoneal lymph nodes, up to 1.[address] POA Hyperdense subcutaneous soft tissue lesion in left infraumbilical abdominal w all, measuring 1.6- 1.7 cm, with internal air foci and focal overlying skin thickening per CT POA Acute anemia POA Uncontrolled diabetes POA Nicotine dependence POA PLAN: Patient is making improvements. Final urine culture shows fluoroquinolone resistant E coli. Patient would benefit from another 24 hours of IV antibiotics possible discharge in the morning if ok with infectious disease We will request labs in am Further orders to follow depending on above results MARTY BAIN MD Jan 09, 2025 10:01
[2025-01-10] VITALS (7 sets, daily range): BP systolic 91–139; BP diastolic 44–64; PULSE 65–81; RESP 18–20; TEMP 97.6–98.3; O2SAT 96–98
[2025-01-10 04:11] LABS: IMMATURE GRANULOCYTE ABSOLUTE 0.01 K/uL (0-1); NUCLEATED RED BLOOD CELLS 0.0 % (0.0-0.19); PLATELET COUNT (AUTO) 276 K/uL (130-400); RED BLOOD CELL COUNT(AUTO) 3.22 MIL/uL (4.00-5.50); RED CELL DISTRIBUTION WIDTH 13.3 % (11.0-15.5); WHITE BLOOD COUNT (AUTO) 5.6 K/uL (4.8-10.8)
[2025-01-10 04:21] LABS: CREATININE 1.2 mg/dL (0.5-1.0); GLOMERULAR FILTR. RATE CALC 50.0 mL/min (>90); GLUCOSE,RANDOM 156.0 mg/dL (70-105); SODIUM SERUM 137.0 mmol/L (136-145); UREA NITROGEN, BLOOD 21.0 mg/dL (7-18)
--- NOTE | 2025-01-10 14:42 | NUR ---
DC PLAN SPOKE TO NURYS OVER CASE CAITLIN ONE CULTURE WAS A POSSIBLE CONTAMINATE. SAID WOULD SPEAK TO DR Zahra DURON POSSIBLE DC HOME. Addendum: 01/10/25 at 1443 by LIDYA MILLER RN CM Amended: Links added.
--- NOTE | 2025-01-10 16:31 | PN ---
[facility] PROGRESS NOTE Date of Service: Jan 10, 2025 Time of Service: 16:24 SUBJECTIVE: [ 01/08/2025: PATIENT WAS SEEN AND EXAMINED IN HER ROOM WITH THE NURSE PRESENT AT THE BEDSIDE. PATIENT WAS SITTING IN A BEDSIDE CHAIR. SMILING. HE STATES THAT HER BELLY PAIN IMPROVED DRAMATICALLY. DENIED ANY NAUSEA OR VOMITING. SHE IS STILL RECEIVING IV ANTIBIOTICS WE WILL AVOID ANY ON CHRONIC SINCE COMING TO THE FLOOR TODAY. 01/09/2025: Patient was seen and examined in room 413. She is sitting up in bed. She describes her abdominal pain which yesterday was 5/10 as being improved or less than 5/10. No nausea or vomiting no trouble with urinating but still having some hard stools. She describes it as passing some crawdads". She is hoping the stool softeners she took last night and then again this morning we will help with her bowels. No fever or chills.] REVIEW OF SYSTEMS CONSTITUTIONAL: Denies fevers, chills, or night sweats. No unintentional weight loss reported. NEUROLOGICAL: Denies headache, amaurosis fugax, motor weakness, sensory deficit, vertigo/spinning sensation, gait abnormalities, or tremors. ENT: No hearing loss, otalgia, otorrhea, rhinitis, rhinorrhea, hoarseness, or sore throat. CARDIOVASCULAR: Denies any exertional angina, dyspnea on exertion, orthopnea, paroxysmal nocturnal dyspnea, palpitations, life-threatening arrhythmias, claudication. PULMONARY: Denies any shortness of breath, cough, phlegm/sputum, hemoptysis, pleuritic chest pain. SLEEP: Denies morning headaches, daytime somnolence or napping. Denies difficulty falling asleep, staying asleep, waking from sleep. Denies knowledge of snoring. GASTROINTESTINAL: complained of abdominal pain and constipation and nausea Denies any type of dysphagia to either liquids or solids. Denies vomiting, pyrosis, early satiety, diarrhea,changes in stool consistency or caliber. Denies coffee-ground emesis, hematemesis, hematochezia, or melanotic stools. GENITOURINARY: Denies frequency, urgency, nocturia, hematuria or incontinence (Storage/Irritative symptoms.) Low urinary stream, straining to void, urinary intermittency or hesitancy, splitting of the voiding stream, terminal dribbling. ENDOCRINOLOGIC: Denies polyuria, polydipsia, polyphagia or heat/cold intolerances. HEMATOLOGIC: Denies thrombophilia/previous clots, or coagulopathy/bleeding disorders. ONCOLOGIC: Denies personal history of malignancy. DERMATOLOGIC: Denies rashes or pruritus. PSYCHIATRIC: Denies any suicidal or homicidal ideation. Denies hallucinations. PHYSICAL EXAM GENERAL APPEARANCE: The patient is awake, alert, and oriented, in no acute cardiopulmonary distress. NEUROLOGICAL: Cranial nerves II-XII grossly intact. Motor is 5/5 in bilateral upper and lower extremities proximal to distal. No sensory deficits. HEENT: Face is symmetric. Pupils are equal and reactive. Extraocular movements are intact. NECK: Supple. No JVD. No thyromegaly. No submental, submandibular, pre- /postauricular, occipital or supraclavicular lymphadenopathy. CHEST: Normal chest expansion. No Telemetry. LUNGS: Absence of any rales, rhonchi or any wheezing. CARDIOVASCULAR: Regular. S1 and S2 normal. No appreciable rubs, murmurs or gallops. ABDOMEN: Soft and nondistended. There is no rebound, voluntary guarding, or rigidity. : Deferred. No Navarro. EXTREMITIES: Non-edematous and not cyanotic. No clubbing. Good capillary refill. SKIN: No skin breakdown. Vital Signs (last 8hr) Date Time Temp Pulse Resp B/P (MAP) Pulse Ox O2 Delivery O2 Flow Rate FiO2 01/10/25 16:10 97.9 78 18 127/53 100 Room Air 01/10/25 12:00 98.2 75 18 118/63 98 Room Air 01/10/25 09:10 96 Room Air* 0 21 LABS: Laboratory: Test 01/10/25 15:03 01/10/25 04:00 Range/Units Whole Blood Glucose 175 H 70-110 MG/DL White Blood Count 5.6 4.8-10.8 K/uL Red Blood Count 3.22 L 4.00-5.50 MIL/uL Hemoglobin 9.0 L 12.0-16.0 g/dL Hematocrit 28.0 L 36-48 % Mean Corpuscular Volume 87.0 79-99 fL Mean Corpuscular Hemoglobin 28.0 27.0-33.0 pg Mean Corpuscular Hemoglobin Concent 32.1 32.0-36.0 g/dL Red Cell Distribution Width 13.3 11.0-15.5 % Platelet Count 276 130-400 K/uL Mean Platelet Volume 9.7 7.5-10.5 fL Immature Granulocyte % (Auto) 0.2 0-1 % Neutrophils (%) (Auto) 44.1 40.0-77.0 % Lymphocytes (%) (Auto) 38.4 21.0-51.0 % Monocytes (%) (Auto) 11.6 3.0-13.0 % Eosinophils (%) (Auto) 5.2 0.0-8.0 % Basophils (%) (Auto) 0.5 0.0-5.0 % Neutrophils # (Auto) 2.5 1.8-7.7 K/uL Lymphocytes # (Auto) 2.2 1.0-4.8 K/uL Monocytes # (Auto) 0.7 0.1-1.0 K/uL Eosinophils # (Auto) 0.29 0.00-0.70 K/uL Basophils # (Auto) 0.03 0.00-0.20 K/uL Absolute Immature Granulocyte (auto 0.01 0-1 K/uL Nucleated Red Blood Cells 0.0 0.0-0.19 % Sodium Level 137 136-145 mmol/L Potassium Level 3.8 3.5-5.1 mmol/L Chloride Level 104 101-111 mmol/L Carbon Dioxide Level 29 21-32 mmol/L Blood Urea Nitrogen 21 H 7-18 mg/dL Creatinine 1.2 H 0.5-1.0 mg/dL Glomerular Filtration Rate Calc 50 >90 mL/min Random Glucose 156 H 70-105 mg/dL Total Calcium 8.6 8.5-10.1 mg/dL Current Medications Medications (Trade) Dose Ordered Sig/Rocío Route PRN Reason Start Time Stop Time Status Last Admin Dose Admin Dextrose (D50w) 50 ml AD PRN IV HYPOGLYCEMIA PROTOCOL 01/06/25 20:00 02/05/25 19:59 01/06/25 21:38 50 ML Dextrose/Lactated Ringer's 1,000 ml @ 100 mls/hr Q10H IV 01/07/25 04:00 02/06/25 03:59 01/10/25 02:06 100 MLS/HR Docusate Sodium (COLace 100MG CAP) 100 mg BID PO 01/08/25 21:00 02/07/25 20:59 01/10/25 09:10 100 MG Glucagon (Glucagon 1mg Kit) 1 mg AD PRN IM HYPOGLYCEMIA PROTOCOL 01/06/25 20:00 02/05/25 19:59 Insulin Human Regular (humuLIN R 100 UNIT/ML 3ML) INSULIN SLIDING SCAL... ACHS SQ 01/06/25 21:00 02/05/25 20:59 01/10/25 13:30 3 UNIT Lactated Ringer's 1,000 ml @ 100 mls/hr Q10H IV 01/06/25 20:00 01/07/25 04:01 DC 01/06/25 20:00 100 MLS/HR Levofloxacin/ Dextrose 100 ml @ 100 mls/hr Q24H STAT IV 01/06/25 17:38 01/06/25 18:37 DC 01/06/25 17:51 100 MLS/HR Magnesium Sulfate 50 ml @ 0 mls/hr PROTOCOL PRN IV OTHER [SEE ORDER COMMENTS] 01/06/25 20:00 02/05/25 19:59 Morphine Sulfate (morPHINE 2MG SYG) 2 mg Q4H PRN IVP SEVERE PAIN (7-10) 01/06/25 21:00 01/13/25 20:59 01/06/25 21:24 2 MG Ondansetron HCl (zoFRAN 4MG INJ) 4 mg Q6H PRN IV NAUSEA/VOMITING 01/06/25 20:00 02/05/25 19:59 01/07/25 04:15 4 MG Pantoprazole Sodium (PROTonix 40MG INJ) 40 mg DAILY IVP 01/07/25 09:00 02/06/25 08:59 01/10/25 09:10 40 MG Piperacillin Sod/ Tazobactam Sod 50 ml @ 12.5 mls/hr Q8H IV 01/07/25 08:30 01/17/25 08:29 01/10/25 09:10 12.5 MLS/HR Piperacillin Sod/ Tazobactam Sod 50 ml @ 12.5 mls/hr ZOSY8 IV 01/06/25 21:00 01/07/25 08:24 DC 01/06/25 21:27 12.5 MLS/HR Piperacillin Sod/ Tazobactam Sod (Zosyn 3.375gm+NS 50ml) 3.375 gm ONCE STAT IV 01/06/25 17:25 01/06/25 17:40 DC Potassium Chloride 100 ml @ 50 mls/hr AD PRN IV POTASSIUM PROTOCOL 01/06/25 20:00 02/05/25 19:59 DIAGNOSTICS / RADIOLOGY: [ ] ASSESSMENT: Acute pyelonephritis POA Intractable abdominal pain POA Large left renal calculi with severe hydronephrosisper CT POA Large bladder calculus, measuring 1.8 - 3.[address] POA Multiple enlarged retroperitoneal lymph nodes, up to 1.[address] POA Hyperdense subcutaneous soft tissue lesion in left infraumbilical abdominal wall, measuring 1.6- 1.7 cm, with internal air foci and focal overlying skin thickening per CT POA Acute anemia POA Uncontrolled diabetes POA Nicotine dependence POA PLAN: Follow up with the Infectious Disease -Continue Zosyn Trend WBCs O2 nasal cannula as needed Monitor blood pressure Regular diet GI prophylaxis with pantoprazole Continue D5 LR at 100 mL/hour Trend a.m. BMP Replete electrolytes as necessary DVT prophylaxis with SCDs only for now Trend a.m. CBC Continue half dose insulin sliding scale with glucose checks a.c. and HS Full code Case was discussed with patient's nurse at bedside Attention time greater than 30 minutes VERONICA SHIRLEY IV, MD Jan 10, 2025 16:31
--- NOTE | 2025-01-10 22:32 | PN ---
INFECTIOUS DISEASE PROGRESS NOTE Date of Service: Jan 10, 2025 SUBJECTIVE: This is a 64-year-old female patient who was admitted to the hospital for chief complaint of abdominal pain, nausea or vomiting and weakness. Patient reported she was recently treated for urinary tract infection with Macrobid. A CT scan of the abdomen and pelvis revealed a left renal pelvis calculi with severe left hydronephrosis and a left-sided ureteral stent in place. Patient reported having a appointment to see a urologist at [facility] to have the stent removed. A urinalysis was positive and the urine culture grew E coli and patient has been placed on Zosyn IV. PHYSICAL EXAM EYES: Anicteric. Pupils equal and reactive. HENT: No oral thrush seen, moist Oral mucosa NECK: Supple, no JVD or thyromegaly. LUNGS: Good air entry. No rales, no rhonchi. CARDIOVASCULAR: S1, S2 regular. No murmur heard. ABDOMEN: Soft, non tender, bowel sounds present, no organomegaly CENTRAL NERVOUS SYSTEM: Awake, alert, oriented x 3. No focal deficits. SKIN: No rashes, no swelling. LYMPHATICS: No peripheral lymphadenopathy MUSCULOSKELETAL: No joint swelling, erythema or tenderness. EXTREMITIES: No cyanosis or clubbing BACK: No deformity, no pressure ulcer. GENITOURINARY: No dysuria or hematuria Vital Sign (Last 12 Hours) 01/10/25 01/10/25 12:00 16:10 Temp 98.2 97.9 Pulse 75 78 Resp 18 18 B/P (MAP) 118/63 127/53 Pulse Ox 98 100 O2 Delivery Room Air Room Air Intake & Output (last 24hrs)0 01/09/25 01/09/25 01/10/25 15:00 23:00 07:00 Intake Total 1500 ml 400 ml Balance 1500 ml 400 ml LABS: Laboratory: Test 01/10/25 19:38 01/10/25 04:00 Range/Units Whole Blood Glucose 150 H 70-110 MG/DL White Blood Count 5.6 4.8-10.8 K/uL Red Blood Count 3.22 L 4.00-5.50 MIL/uL Hemoglobin 9.0 L 12.0-16.0 g/dL Hematocrit 28.0 L 36-48 % Mean Corpuscular Volume 87.0 79-99 fL Mean Corpuscular Hemoglobin 28.0 27.0-33.0 pg Mean Corpuscular Hemoglobin Concent 32.1 32.0-36.0 g/dL Red Cell Distribution Width 13.3 11.0-15.5 % Platelet Count 276 130-400 K/uL Mean Platelet Volume 9.7 7.5-10.5 fL Immature Granulocyte % (Auto) 0.2 0-1 % Neutrophils (%) (Auto) 44.1 40.0-77.0 % Lymphocytes (%) (Auto) 38.4 21.0-51.0 % Monocytes (%) (Auto) 11.6 3.0-13.0 % Eosinophils (%) (Auto) 5.2 0.0-8.0 % Basophils (%) (Auto) 0.5 0.0-5.0 % Neutrophils # (Auto) 2.5 1.8-7.7 K/uL Lymphocytes # (Auto) 2.2 1.0-4.8 K/uL Monocytes # (Auto) 0.7 0.1-1.0 K/uL Eosinophils # (Auto) 0.29 0.00-0.70 K/uL Basophils # (Auto) 0.03 0.00-0.20 K/uL Absolute Immature Granulocyte (auto 0.01 0-1 K/uL Nucleated Red Blood Cells 0.0 0.0-0.19 % Sodium Level 137 136-145 mmol/L Potassium Level 3.8 3.5-5.1 mmol/L Chloride Level 104 101-111 mmol/L Carbon Dioxide Level 29 21-32 mmol/L Blood Urea Nitrogen 21 H 7-18 mg/dL Creatinine 1.2 H 0.5-1.0 mg/dL Glomerular Filtration Rate Calc 50 >90 mL/min Random Glucose 156 H 70-105 mg/dL Total Calcium 8.6 8.5-10.1 mg/dL DIAGNOSTICS / RADIOLOGY: PATIENT: YOLANDA WALKER ACCT: [id number] LOC: [facility] U: [id number] AGE/SX: 64/F ROOM: [facility] RE01/06/[address]: ELLIOT NGO MD : 1960 BED: 1 DIS: STATUS: ADM IN TLOC: SPEC: [id number] IMELDA: 01/06/25 STATUS: LOLY REQ: [id number] RECD: 01/07/[address] [facility] [address]: DAGMAR GEIGER MD SOURCE: [facility] [place] ENTR: 01/07/[address] [facility] [address]: YAAKOV ZENG MD SPDESC: CLEAN CAT ORDERED: AERO ID & SENS Procedure Result Cornel Date-Time AEROBIC ID & SENSITIVITIES Final 01/08/25 MRL COLONY DESCRIPTION: DAY 1: COLONY COUNT: >100,000 CFU/ML GRAM NEGATIVE RODS IDENTIFICATION AND SENSITIVITY TO FOLLOW COMMENTS(R): DIFFERENT MORPHOLOGY SENSITIVITY ESCHERICHIA COLI ESCHERICHIA COLI#2 E COLI E COLI#2 M.I.C. RX M.I.C. RX --------- ---- --------- ---- AMPICILLIN <=8 S <=8 S AZTREONAM <=4 S <=4 S CEFAZOLIN <=2 S 4 I CEFTAZIDIME/AVIBACTAM <=8 S <=8 S CEFTRIAXONE <=1 S CIPROFLOXACIN >2 R >2 R GENTAMICIN <=2 S <=2 S LEVOFLOXACIN >4 R >4 R NITROFURANTOIN >64 R >64 R MEROPENEM <=1 S <=1 S PIPERACILLIN/TAZOBACTAM <=8 S <=8 S TRIMETHOPRIM/SUFLAMETHOXAZOLE <=2/38 S <=2/38 S ASSESSMENT: Urinary tract infection with E coli. Failed outpatient oral antibiotic therapy. Staphylococcus epidermidis bacteremia which is a contaminant. Left hydronephrosis. Diabetes mellitus. Medical noncompliance. PLAN: Continue Zosyn IV. Continue pain management. During GI prophylaxis. Continue anti diabetics. This case was reviewed and discussed with my supervising physician Dr. Smith and the above assessment and plan was formulated and agreed upon. ATTESTATION BY PHYSICIAN I have seen and examined the patient. I reviewed the documentation, medical decision making, and treatment plan as noted by the mid-level provider above. I agree with the findings and plan of care. ORVILLE SMITH MD, MIRTA L [facility] Jan 10, 2025 22:31
[2025-01-11] VITALS: BP 123/52; PULSE 64; RESP 18; TEMP 97.9
[2025-01-11 04:00] VITALS: BP 107/61; PULSE 69; RESP 18; TEMP 97.7
[2025-01-11 08:00] VITALS: BP 116/62; PULSE 70; RESP 19; TEMP 97.7
[2025-01-11 11:01] VITALS: O2SAT 100
[2025-01-11 11:52] VITALS: BP 122/70; PULSE 77; RESP 18; TEMP 97.9
--- NOTE | 2025-01-11 15:35 | PN ---
INFECTIOUS DISEASE PROGRESS NOTE Date of Service: Jan 11, 2025 SUBJECTIVE: This is a 64-year-old female patient who was seen and examined at bedside in room 413. Patient is afebrile this morning, temperature is 97.9. Case management to evaluate for referral to [facility] for outpatient IV antibiotics with Zosyn for [address] midline. Prescription was written. PHYSICAL EXAM EYES: Anicteric. Pupils equal and reactive. HENT: No oral thrush seen, moist Oral mucosa NECK: Supple, no JVD or thyromegaly. LUNGS: Good air entry. No rales, no rhonchi. CARDIOVASCULAR: S1, S2 regular. No murmur heard. ABDOMEN: Soft, non tender, bowel sounds present, no organomegaly CENTRAL NERVOUS SYSTEM: Awake, alert, oriented x 3. No focal deficits. SKIN: No rashes, no swelling. LYMPHATICS: No peripheral lymphadenopathy MUSCULOSKELETAL: No joint swelling, erythema or tenderness. EXTREMITIES: No cyanosis or clubbing BACK: No deformity, no pressure ulcer. GENITOURINARY: No dysuria or hematuria Vital Sign (Last 12 Hours) 01/11/25 01/11/25 01/11/25 01/11/25 04:00 08:00 11:01 11:52 Temp 97.7 97.7 97.9 Pulse 69 70 77 Resp 18 19 18 B/P (MAP) 107/61 116/62 122/70 Pulse Ox 93 100 100 100 O2 Delivery Room Air Room Air Room Air* Room Air O2 Flow Rate 0 FiO2 21 21 21 Intake & Output (last 24hrs) 01/10/25 01/10/25 01/11/25 14:59 22:59 06:59 Intake Total 1200 ml 550.0 ml Balance 1200 ml 550.0 ml LABS: Laboratory: Test 01/11/25 11:32 01/10/25 04:00 Range/Units Whole Blood Glucose 213 H 70-110 MG/DL White Blood Count 5.6 4.8-10.8 K/uL Red Blood Count 3.22 L 4.00-5.50 MIL/uL Hemoglobin 9.0 L 12.0-16.0 g/dL Hematocrit 28.0 L 36-48 % Mean Corpuscular Volume 87.0 79-99 fL Mean Corpuscular Hemoglobin 28.0 27.0-33.0 pg Mean Corpuscular Hemoglobin Concent 32.1 32.0-36.0 g/dL Red Cell Distribution Width 13.3 11.0-15.5 % Platelet Count 276 130-400 K/uL Mean Platelet Volume 9.7 7.5-10.5 fL Immature Granulocyte % (Auto) 0.2 0-1 % Neutrophils (%) (Auto) 44.1 40.0-77.0 % Lymphocytes (%) (Auto) 38.4 21.0-51.0 % Monocytes (%) (Auto) 11.6 3.0-13.0 % Eosinophils (%) (Auto) 5.2 0.0-8.0 % Basophils (%) (Auto) 0.5 0.0-5.0 % Neutrophils # (Auto) 2.5 1.8-7.7 K/uL Lymphocytes # (Auto) 2.2 1.0-4.8 K/uL Monocytes # (Auto) 0.7 0.1-1.0 K/uL Eosinophils # (Auto) 0.29 0.00-0.70 K/uL Basophils # (Auto) 0.03 0.00-0.20 K/uL Absolute Immature Granulocyte (auto 0.01 0-1 K/uL Nucleated Red Blood Cells 0.0 0.0-0.19 % Sodium Level 137 136-145 mmol/L Potassium Level 3.8 3.5-5.1 mmol/L Chloride Level 104 101-111 mmol/L Carbon Dioxide Level 29 21-32 mmol/L Blood Urea Nitrogen 21 H 7-18 mg/dL Creatinine 1.2 H 0.5-1.0 mg/dL Glomerular Filtration Rate Calc 50 >90 mL/min Random Glucose 156 H 70-105 mg/dL Total Calcium 8.6 8.5-10.1 mg/dL ASSESSMENT: Urinary tract infection with E coli. Failed outpatient oral antibiotic therapy. Staphylococcus epidermidis bacteremia which is a contaminant. Left hydronephrosis. Diabetes mellitus. Medical noncompliance. PLAN: Continue Zosyn IV. Continue pain management. During GI prophylaxis. Continue anti diabetics. Case management to evaluate for referral to [facility] for outpatient IV antibiotics with Zosyn for [address] midline. Prescription was written. This case was reviewed and discussed with my supervising physician Dr. Smith and the above assessment and plan was formulated and agreed upon. ATTESTATION BY PHYSICIAN I have seen and examined the patient. I reviewed the documentation, medical decision making, and treatment plan as noted by the mid-level provider above. I agree with the findings and plan of care. ORVILLE SMITH MD, MIRTA L [facility] Jan 11, 2025 15:35
[2025-01-11 15:47] VITALS: BP 106/44; PULSE 77; RESP 18; TEMP 97.9
--- NOTE | 2025-01-11 16:48 | DS ---
Discharge Summary Hospital Course Summary: DATE OF ADMISSION:[01/06/2025] DATE OF DISCHARGE:[01/11/2025] DISPOSITION:[Home with a [facility] for antibiotics through IV] CONDITION:[Medically stable] CONSULTANTS:[Urologist, ID] FOLLOW UP APPOINTMENTS:[PCP 2 to 3 days. ID at [facility] for IV antibiotics daily/as prescribed. Urologist at [facility] in 1 to 2 weeks] PROCEDURES:[None] IMAGING: report attached to summary MICROBIOLOGY: report attached to summary ACTIVITY:[Independent] HOME MEDICATIONS: see [facility] NEW MEDICATIONS:[Atorvastatin one tablet p.o. at bedtime, vitamin D3, meloxicam, nitrofurantoin 100 mg p.o. daily, omeprazole 20 mg daily, Zosyn was prescribed as per ID 3.375 q.8 hours times 14 days] EMERGENCY INSTRUCTIONS: The patient was instructed to present to the nearest Emergency departmentr or call 911 once their symptoms will return or worsen Manager Dialysis(s): Patient is 64 years old female who came to emergency department with a complaint of severe abdominal pain and weakness. Patient just recently was also evaluated by her PCP who found that patient has a UTI and was started on Macrobid antibiotic. During hospitalization patient's urinalysis was positive and final urine culture showed E coli, E coli 2., and also final blood culture came back positive for Streptococcus epidermidis. ID was consulted and today is recommending to discharge patient home with a [facility] on Zosyn 3.375 q.8 hours times 14 days. Midline was inserted today 01/11/2025. Patient was also evaluated by urologist for renal calculi and per his recommendation patient is cleared to be discharged home and follow-up with her treating urologist at [facility] regarding her retained double-J stent for which she was already scheduled for surgery at the hospital. Today patient is cleared to be discharged home with IV antibiotics to [facility]. Follow-up outpatient with the PCP in 2 to 3 days. Urologist within 1 to 2 weeks. ID as recommended for IV antibiotics. Patient denies any shortness of breath, chest pain, nausea, vomiting or any other discomfort. Procedure(s): REVIEW OF SYSTEMS CONSTITUTIONAL: Denies fevers, chills, or night sweats. No unintentional weight loss reported. NEUROLOGICAL: Denies headache, amaurosis fugax, motor weakness, sensory deficit, vertigo/spinning sensation, gait abnormalities, or tremors. ENT: No hearing loss, otalgia, otorrhea, rhinitis, rhinorrhea, hoarseness, or sore throat. CARDIOVASCULAR: Denies any exertional angina, dyspnea on exertion, orthopnea, paroxysmal nocturnal dyspnea, palpitations, life-threatening arrhythmias, claudication. PULMONARY: Denies any shortness of breath, cough, phlegm/sputum, hemoptysis, pleuritic chest pain. SLEEP: Denies morning headaches, daytime somnolence or napping. Denies difficulty falling asleep, staying asleep, waking from sleep. Denies knowledge of snoring. GASTROINTESTINAL: Denies any abdominal pain, constipation, nausea Denies any type of dysphagia to either liquids or solids. Denies vomiting, pyrosis, early satiety, diarrhea,changes in stool consistency or caliber. Denies coffee-ground emesis, hematemesis, hematochezia, or melanotic stools. GENITOURINARY: Denies frequency, urgency, nocturia, hematuria or incontinence (Storage/Irritative symptoms.) Low urinary stream, straining to void, urinary intermittency or hesitancy, splitting of the voiding stream, terminal dribbling. ENDOCRINOLOGIC: Denies polyuria, polydipsia, polyphagia or heat/cold intolerances. HEMATOLOGIC: Denies thrombophilia/previous clots, or coagulopathy/bleeding disorders. ONCOLOGIC: Denies personal history of malignancy. DERMATOLOGIC: Denies rashes or pruritus. PSYCHIATRIC: Denies any suicidal or homicidal ideation. Denies hallucinations. PHYSICAL EXAM GENERAL APPEARANCE: The patient is awake, alert, and oriented, in no acute cardiopulmonary distress. NEUROLOGICAL: Cranial nerves II-XII grossly intact. Motor is 5/5 in bilateral upper and lower extremities proximal to distal. No sensory deficits. HEENT: Face is symmetric. Pupils are equal and reactive. Extraocular movements are intact. NECK: Supple. No JVD. No thyromegaly. No submental, submandibular, pre- /postauricular, occipital or supraclavicular lymphadenopathy. CHEST: Normal chest expansion. No Telemetry. LUNGS: Absence of any rales, rhonchi or any wheezing. CARDIOVASCULAR: Regular. S1 and S2 normal. No appreciable rubs, murmurs or gallops. ABDOMEN: Soft and nondistended. There is no rebound, voluntary guarding, or rigidity. : Deferred. No Navarro. EXTREMITIES: Non-edematous and not cyanotic. No clubbing. Good capillary refill. SKIN: No skin breakdown. Assessment/Plan: ASSESSMENT: Acute pyelonephritis POA Intractable abdominal pain POA Large left renal calculi with severe hydronephrosisper CT POA Acute complicated cystitis E coli in the urine POA Streptococcus epidermidis grew in blood POA Multifactorial anemia Acute renal failure POA Large bladder calculus, measuring 1.8 - 3.[address] POA Multiple enlarged retroperitoneal lymph nodes, up to 1.[address] POA Hyperdense subcutaneous soft tissue lesion in left infraumbilical abdominal wall, measuring 1.6- 1.7 cm, with internal air foci and focal overlying skin thickening per CT POA Acute anemia POA Uncontrolled diabetes POA Nicotine dependence POA Home Medications: Reported Medications Nitrofurantoin Macrocrystal (Nitrofurantoin) 100 Mg Capsule, 100 MG PO DAILY for 30 Days, #30 CAP 01/07/25 Meloxicam (Meloxicam) 15 Mg Tablet, 1 TAB PO DAILY for 30 Days, #30 TAB 0 Refills 01/07/25 Omeprazole (Omeprazole) 20 Mg Tablet.dr, 1 TAB PO DAILY for 30 Days, #30 TAB 0 Refills 01/07/25 Cholecalciferol (Vitamin D3) (Vitamin D3) 125 Mcg (5000 Unit) Capsule, 1 CAP PO QWEEK for 30 Days, #30 CAP 0 Refills 01/07/25 Atorvastatin Calcium (LIPITOR) 20 Mg Tab, 1 TAB PO HS for 30 Days, #30 TAB 0 Refills 01/07/25 Time spent arranging discharge: 31-60 minutes ATTESTATION BY PHYSICIAN I have seen and examined the patient. I reviewed the documentation, medical decision making, and treatment plan as noted by the mid-level provider above. I agree with the findings and plan of care. Jena Bobo MD, KATARZYNA B [employer] Jan 11, 2025 16:48
--- NOTE | 2025-01-11 17:41 | NUR ---
MARLENA VILLAGOMEZ CM GAVE INFO TO NURSE AND TO PATIENT. GAVE INFO TO PATIENT INCLUDED MAP, ADDRESS, PHONE NUMBER WITH TIME AND DATE. Addendum: 01/11/25 at 1746 by LIDYA MILLER RN CM Amended: Links added.
--- NOTE | 2025-01-11 18:07 | NUR ---
Pt. given discharge instructions, all questions answered, and verbalized understanding. Peripheral IV removed. Mid-line remains intact and saline flushed. No acute distress noted. Pt. discharged via w/c to private vehicle.
== END 2025-01-11 18:20 | disposition home or self-care (01) | DRG 690 ==
LOC: EDH 15:02 → EDHIP 19:47 → 4CH 01-07 09:30
PROVIDERS: ADMIT Hospitalist; ATTEND Hospitalist
PROC: 05HB33Z Insertion of Infusion Device into Right Basilic Vein, Percutaneous Approach (ICD-10-PCS; principal; 2025-01-11)
PROC: B54MZZA Ultrasonography of Right Upper Extremity Veins, Guidance (ICD-10-PCS; 2025-01-11)
DX: N13.6 Pyonephrosis (principal); R78.81 Bacteremia; F17.210 Nicotine dependence, cigarettes, uncomplicated; D64.9 Anemia, unspecified; I10 Essential (primary) hypertension; B95.7 Other staphylococcus as the cause of diseases classified elsewhere; E11.9 Type 2 diabetes mellitus without complications; B96.20 Unspecified Escherichia coli [E. coli] as the cause of diseases classified elsewhere; K21.9 Gastro-esophageal reflux disease without esophagitis; B96.89 Other specified bacterial agents as the cause of diseases classified elsewhere; S39.81XA Other specified injuries of abdomen, initial encounter; E78.5 Hyperlipidemia, unspecified; N17.9 Acute kidney failure, unspecified; Z83.3 Family history of diabetes mellitus; Z90.710 Acquired absence of both cervix and uterus; Z91.199 Patient's noncompliance with other medical treatment and regimen due to unspecified reason; Z79.899 Other long term (current) drug therapy; Z79.01 Long term (current) use of anticoagulants; X58.XXXA Exposure to other specified factors, initial encounter; Y93.89 Activity, other specified; Y92.89 Other specified places as the place of occurrence of the external cause; Y99.8 Other external cause status
CPT/HCPCS: 36415; 74176; 80048; 80053; 80076; 80305; 81001; 82948; 83036; 83605; 83690; 83735; 84443; 84484; 85025; 87040; 87086; 87186; 93005; 96374; 96375; 99291; G0378; J1815; J1885; J1956; J2270; J2405; J2470; J2543; J7030; J7070; J7120